=== PATIENT | female | born 1995 | race Caucasian/White ===

== ENCOUNTER 2025-03-26 19:00 | Emergency (ER) | payer OTHER, SELFPAY ==
--- OUTSIDE RECORDS SUMMARY | 2024-07-01 09:32 | XMS_ITS | Continuity of Care Document ---
Author Organization [facility] Address [address] [place] [address] Phone Care Team Providers Care Billet Straightener Name Role Phone Sarah Laughlin APRN Unavailable Unavaila ble Allergies, Adverse Reactions, Alerts Substance Reaction Status Criticality No Known Allergies Active No Inform ation Medications Medication Instructions Dosage Effective Dates (start - stop) Status Comments sumatriptan 25 mg tablet take 1 tablet by oral route after onset of migraine; may repeat after 2 hours if headache returns,not to exceed 200mg in 24hrs 25 MG - Active ondansetron HCl 4 mg tablet take 1 tablet by oral route 3 times every day prn n/v - Active gabapentin 600 mg tablet take 1 tablet by oral route 3 times every day 600 MG - Active mirtazapine 7.5 mg tablet take 1 tablet by oral route every day at bedtime 7.5 MG - Active sertraline 50 mg tablet take 1.5 tablet by oral route every bedtime 75 MG - Active Procedures Procedure Date Ketorolac tromethamine inj 15mg 024 OFFICE/OUTPATIENT VISIT, [facility] Advance Directives Directive Yes / No Effective Date File Name No Information Encounters Encounter Description Practice Location Reason(s) For Visit Diagnoses Date Provider Providers Copied on Encounter [facility], [address] [place] [address], [id number] , [place] tel:[phone] [facility] No Information 4 Emerson Smith. [address] [place] [address], [id number], [place]. tel: [phone] OFFICE/OUTPA TIENT VISIT, [facility], [address], [place], [id number] , [place] tel: [phone] [facility] Head pain, dizzy (chief complaint) Body mass index [BMI] 29.0-29.9, adultAcute nonintractable headache, unspecified headache typeNauseaDizzinessV apes nicotine containing substance Emerson Smith. [address] [place] [address], [id number], [place]. tel: [phone] Family History Family Member Type Diagnosis Age At Onset Sister Problem Developmental delay Sister Problem Seizure disorder Sister Problem ADD/ADHD Brother Problem Asthma Mother Problem Depression Mother Problem Allergies Mother Problem Obesity Payers Payer name Insurance type Covered libertarian ID Authoriza tion(s) [place] [id number] Medicaid Wrap - [facility] MC [id number] Social History Type Description Quantity Date Captured Comments Alcohol Use Details Unknown Caffeine Use Details Unknown Tobacco Use Status No Information Smoking Status No Information Sex Female Sexual Orientation Straight or heterosexual Feb Gender Identity Female Chief Complaint And Reason For Visit No Information Reason For Referral Reason For Referral No Information Plan Of Treatment Date Type Action Status Goal Influenza vaccine. Due on Oc due Goal Unhealthy drug u se screening. Due on due Goal HPV. Due on due Goal Tdap. Due on due Goal PRAPARE ASSESSMENT. Due on O due Goal Depression scree franny. Due on due Goal Hep A. Due on du e Goal Hepatitis C scre ening. Due on due Goal RLP. Due on due Goal Tdap Vaccine. Due on 2023 due Goal Depression scree franny. Due on due Goal Tdap. Due on due Goal HPV. Due on due Goal Tdap Vaccine. Due on 2023 due Goal PRAPARE ASSESSMENT. Due on J due Goal Hep A. Due on du e Goal Influenza vaccine. Due on Ju n due Goal RLP. Due on due Goal Hepatitis C scre ening. Due on due Goal Unhealthy drug u se screening. Due on due Goal Dietary manageme nt education, guidance, and counseling completed Future Order: Lab Order HCV Anti body W/ Reflex To Quantitative Real Time Pcr ([id number]), Sent on: Sent History Of Present Illness Encounter Date Complaint History Of Prese nt Illness Head pain, dizzy Presents with c /o head pain/pressure, dizziness, some nausea, and light sensitivity. Reports dizziness for a few months off and on, now dizziness and head pressure has been constant for 2-3 days. Had seen a provider for dizziness and is waiting for referral for ENT, tried antivert without relief. Pt states she has a PCP but could not get into see him today but if she likes the provider she may want to establish care. On Gabapentin for fibromyalgia per pain management at [facility]. [facility] in [place] for mental health. [facility]. Tata Bridges RN I have reviewed all above information and agree. Went to ER for migraine a few days ago and had CT head, headache cocktail and IV meds and fluids. Has taken tylenol, motrin, migraine medicine and antivert. No vomiting but is nauseated. Has had a migraine before. Denies illness. No fever, cough or cold. Reports taking prescribed medications as directed. Denies needs/concerns today. LKastor FENCE ERECTOR Functional Status Date Functional Assessmen t No Information Instructions Date Instruction Additional Infor mation Giving encouragement to exercise Related to Body mass index [BMI] 29.0-29.9, adult Dietary management e ducation, guidance, and counseling Related to Body mass index [BMI] 29.0-29.9, adult Assessments Type Assessment Date No Information Patient Care Teams Name Effective Dates (start - stop) Status Members No Information
[2025-03-26 19:04] VITALS: BP 134/84; PULSE 91; TEMP 36.6; O2SAT 99; BMI 28.3
--- OUTSIDE RECORDS SUMMARY | 2025-03-26 19:09 | XMS_ITS | Clinical Summary ---
Author Organization [facility] Address [address] [place] [address] Care Team Providers Care Computer Programmer Analyst Name Role Phone Wes Vargas DO Primary Care Provider [phone] Dexter Morataya MD Unavailable [phone] Wes Vargas DO Unavailable [phone] Allergies No known active allergies Medications folic acid 1 mg tablet Take 1 tablet by mouth once daily. 30 tablet 2 7 Active Additional Information Patient taking differently: 800 mcgORAL DAILY, Reason: Changing Therapy/Dosage Form, Reported on 11/24/2019 Norethindrone Acet-Ethinyl Est (LOESTRIN 1.530, 21,) 1.5-30 mg-mcg tab Take by mouth once daily. Active gabapentin (NEURONTIN) 600 mg tablet Take 600 mg by mouth three times daily. Active amitriptyline (ELAVIL) 25 mg tablet Take 25 mg by mouth daily at bedtime. Active venlafaxine (EFFEXOR) 37.5 mg tablet Take 37.5 mg by mouth once daily. Active naproxen (NAPROSYN) 500 mg tablet Take 500 mg by mouth twice daily with meals. Active Vitamin E, dl, acetate, (VITAMIN E) 400 unit capsule Take 400 Units by mouth once daily. Active Magnesium Oxide 500 mg tab Take 500 mg by mouth once daily. Active SUMAtriptan (IMITREX) 25 mg tabletIndicati ons:Daily headache Take 1 tablet (25 mg) by mouth as needed for migraine headache (see administration instructions). May repeat dose after 2 hours if needed. Maximum daily dose is 200 mg per day. 20 tablet 4 Active Coenzyme Q10 200 mg capIndications :Daily headache Take 1 capsule by mouth two times a day. 60 capsule 1 4 Active riboflavin, vitamin B2, 400 mg tabIndications :Daily headache Take 1 tablet by mouth once daily. 30 tablet 1 4 Active Active Problems Problem Noted Date Diagnosed Date Chronic pain syndrome 07/24/2017 RSD (reflex sympathetic dystrophy) 03/26/2017 Overview (03/26/2017): Pain management consult diagnosis: likely RSD as contributor to symptoms (pain, weakness) -started Tizanidine to 2 mg every eight, add Trazodone 50 mg at night, home dose of Lyrica 100 mg TID and add Cymbalta 20 mg daily -Symptoms improved significantly overnight -Can walk again (with walker) and pain in bilateral lower extremities and weakness nearly back to baseline. Low back pain 03/25/2017 Overview (03/26/2017): Not able to walk MRI notable for L4-L5 disc herniation, no spinal canal stenosis, no cord injuries The pattern of LE pain, physical exam and MRI are not consistent with spinal lesion or nerve impingement. Neurologic vs. Psychosomatic; apparently this was brought up in the OSH but was not taken well by the family. Plan: - Pain management - note and recs in - Physical therapy - planning on outpatient therapy - Labs ordered per Neuro recs SUMMARY 03/25/2017 Overview (03/25/2017): Ms. Glynn is a 22 year old female with PMH of chronic back pain 2/2 L4-L5 herniated disc (3 years), presumed history of depression who is admitted with abrupt exacerbation of pain in her LE's and back. Imaging is not consistent with cord compression. She has been evaluated by Neurology, Neurosurgery and Neuro Pain management. The history and examination is most consistent with reflex sympathetic dystrophy. DDD (degenerative disc disease), lumbar 10/29/19 15 Depression Resolved Problems Problem Noted Date Diagnosed Date Resolved Date Transitional vertebra 10/29/20142016 Collar bone fracture 017 Family History Medical History Relation Comments Stroke Maternal Aunt 1 heart attack Maternal Aunt 2 Stroke Maternal Grandfather heart attack Maternal Grandfather Arthritis Maternal Grandmother Cancer Maternal Grandmother Diabetes Maternal Grandmother HTN Maternal Uncle 1 heart attack Maternal Uncle 2 Diabetes Maternal Uncle 3 Diabetes Mother HTN Mother Relation Status Comments Father Alive Maternal Aunt 1 Maternal Aunt 2 Maternal Grandfather Maternal Grandmother Maternal Uncle 1 Maternal Uncle 2 Maternal Uncle 3 Mother Alive Social History Tobacco Use Types Packs/Day Years Used Date Smoking Tobacco: Never Smokeless Tobacco: Never Tobacco Cessation:Counseling Given: No Alcohol Use Standard Drinks/Week Comments No 0 (1 standard drink = 0.6 oz pur e alcohol) rare Area Deprivation Index Answer Date Balwinder rded National Score (1-100), lower number is lower ri sk 63 06/24/2024 State Score (1-10), lower number is lower risk 4 06/24/2024 Data from: https://www.neighborhoodatlas.medicine.[facility].edu/. Last address used for calculation [address] 06/24/2024 Comments No Sex and Gender Information Value Date Recorded Sex Assigned at Not on file Legal Sex Female 9:43 AM EST Gender Identity Not on file Sexual Orientation Not on file Occupation Industry Job Start Date Job End Date student @ [employer] Not on file Not on file Not on file unknown Not on file Not on file Not on file Last Filed Vital Signs Vital Sign Reading Time Taken Comments Blood Pressure 126/85 06/24/2024 10:03 AM EDT Pulse 76 06/24/2024 10:03 AM EDT Temperature 36.8 C (98.3 F) 03/26/2017 4:00 PM EDT Respiratory Rate 20 11/24/2019 2:42 PM EDT Oxygen Saturation 98% 06/24/2024 10:03 AM EDT Inhaled Oxygen Concentration - - Weight 95.1 kg (209 lb 9.6 oz) 11/24/2019 2:42 P M EDT Height 165.1 cm (5' 5 ) 11/24/2019 2:42 PM EDT Body Mass Index 34.88 11/24/2019 2:42 PM EDT Plan of Treatment Health Maintenance Due Date Last Done Comments Anxiety Screening 02/11/2012 HIV Screening 02/11/2012 Hepatitis C Screening 02/11/2012 DTaP,Tdap,Td Vaccine (1 - Tdap) 2013 Hepatitis B Vaccine (1 of 3 - 19+ 3-dose series) 02/10 Cervical Cancer Screening 2015 Covid-19 Vaccine (2023- season) 2024 Influenza Vaccine (#1) 2025 07/28/[address] [place] [address] [facility] MEDICAID Care Teams Computer Programmer Analyst Relationship Specialty Start Date End Date Wes Vargas DO PCP - General Family Medicine 10/22/14 Dexter Morataya MD Referring Pain Management 11/18/19 Wes Vargas DO [address] [place] [address] Referring Family Medicine 03/03/21
--- OUTSIDE RECORDS SUMMARY | 2025-03-26 19:09 | XMS_ITS | Clinical Summary ---
Author Organization [facility] Address [address] [place] [address] Care Team Providers Care Turf Manager Name Role Phone SamWes Primary Care Provider Allergies No known active allergies Medications Magnesium Oxide 500 MG tablet Take 1 tablet by mouth daily. Active Vit-Fe Fumarate-FA (WesTab Plus) 27-1 MG tablet Take 1 tablet by mouth daily. 2 Active FLUoxetine 20 MG capsule Take 1 capsule by mouth daily. Active ProFe 391.3 (180 Fe) MG capsule Take 1 capsule by mouth daily. 3 Active sulindac 200 MG tabletIndications:V itamin D deficiency,Calcanea l spur of foot, left,Ganglion cyst of dorsum of right wrist,Ganglion cyst of wrist, left,HNP (herniated nucleus pulposus), lumbar,Lumbar degenerative disc disease,Primary osteoarthritis of left wrist,Abnormal x-ray,History of fibromyalgia,HLA B27 (HLA B27 positive),bed bug exterminator current use of non-steroidal anti-inflammatories (NSAID) 1 po bid PRN 60 tablet 11 3 Active cholecalciferol 25 MCG (1000 UNIT) tabletIndications:V itamin D deficiency,Calcanea l spur of foot, left,Ganglion cyst of dorsum of right wrist,Ganglion cyst of wrist, left,HNP (herniated nucleus pulposus), lumbar,Lumbar degenerative disc disease,Primary osteoarthritis of left wrist,Abnormal x-ray,History of fibromyalgia,HLA B27 (HLA B27 positive),longterm current use of non-steroidal anti-inflammatories (NSAID) 1 po q day 30 tablet 11 3 Active Active Problems Problem Noted Date Diagnosed Date Patient non adherence 12/20/2022 Noncompliance 12/20/2022 Ganglion cyst of wrist, left 12/20/2022 HNP (herniated nucleus pulposus), lumbar 023 Ganglion cyst of dorsum of right wrist 3 Vitamin D deficiency 07/27/2021 HLA B27 (HLA B27 positive) 07/27/2021 Lumbar degenerative disc disease 07/27/2021 Spasm of thoracic back muscle 07/27/2021 Calcaneal spur of foot, left 07/27/2021 Abnormal x-ray 07/27/2021 Primary osteoarthritis of left wrist 07/27/2021 Wrist pain, left 07/27/2021 Fatigue 06/22/2021 Disorder of bone and cartilage 06/22/2021 History of fibromyalgia 06/22/2021 Abnormal reflexes 06/22/2021 Dorsalgia 06/22/2021 Bilateral wrist pain 06/22/2021 Bilateral hand pain 06/22/2021 Bilateral chronic knee pain 06/22/2021 Pes anserinus bursitis of both knees 06/22/2021 Bilateral foot pain 06/22/2021 Bilateral plantar fasciitis 06/22/2021 longterm current use of non -steroidal anti-inflammatories (NSAID) 06/22/2021 Marijuana use 06/22/2021 Social History Tobacco Use Types Packs/Day Years Used Date Smoking Tobacco: Every Day Smokeless Tobacco: Never Tobacco Cessation:Ready to Q uit: Not Asked; Counseling Given: Not Answered Comments Unknown Sex and Gender Information Value Date Recorded Sex Assigned at Not on file Legal Sex Female 12:25 PM EDT Gender Identity Not on file Sexual Orientation Not on file Last Filed Vital Signs Vital Sign Reading Time Taken Comments Blood Pressure 110/64 12/20/2022 4:03 PM EDT Pulse 97 12/20/2022 4:03 PM EDT Temperature - - Respiratory Rate 18 12/20/2022 4:03 PM EDT Oxygen Saturation 98% 12/20/2022 4:03 PM EDT Inhaled Oxygen Concentration - - Weight 65.2 kg (143 lb 12.8 oz) 12/20/2022 4:03 PM EDT Height 165.1 cm (5' 5 ) 12/20/2022 4:03 PM EDT Body Mass Index 23.93 12/20/2022 4:03 PM EDT Plan of Treatment Health Maintenance Due Date Last Done Comments HEPATITIS C VIRUS SCREENING 1994 TETANUS 1994 HIV SCREENING DISCUSSION 2009 HEP B VACCINE (1 of 3 - 19+ 3-dose series) 2013 PNEUMOCOCCAL VACCINE SERIES (1 of 2 - PCV) 2013 TDAP (ADULT) 2013 CERVICAL CANCER SCREENING DISCUSSION 2015 COVID-19 VACCINE (1 - 2023-2 5 season) 2024 INFLUENZA VACCINE (Season Ended) 2025 07/28/20 09 HPV VACCINE Aged Out No longer eligi ble based on patient's age to complete this topic Insurance [id number] Care Teams Turf Manager Relationship Specialty Start Date End Date Wes Vargas DO PCP - General Family Medicine 06/22/21
--- OUTSIDE RECORDS SUMMARY | 2025-03-26 19:09 | XMS_ITS | Clinical Summary ---
Author Organization [facility] Address [address] [place] [address] Care Team Providers Care Pediatric Nephrologist Name Role Phone Wes Vargas MD Primary Care Provider [phone] Allergies No known active allergies Medications amitriptyline (Elavil) 50 MG tablet Take 1 tablet by mouth at bedtime 4 Active gabapentin (Neurontin) 600 MG tablet 2 tablets 3 times daily 4 Active magnesium gluconate 250 MG tablet Take 1 tablet by mouth 2 times daliy Active Calcium Carb-Cholecalcif juliane (CALCIUM 500 + D PO) Take by mouth Acti ve alpha tocopherol (Vitamin E) 100 units capsule Take 100 Units by mouth Daily Active Multiple Vitamins-Mineral s (WOMENS ONE DAILY PO) Take by mouth Active SUMAtriptan (Imitrex) 25 MG tablet Take 25 mg by mouth 1 (one) time if needed for migraine May repeat dose once in 2 hours if no relief. Do not exceed 2 doses in 24 hours. Active riboflavin (vitamin B2) 100 mg tablet tablet Take 100 mg by mouth Daily Active Coenzyme Q10 100 MG tablet Take 100 mg by mouth Daily Active tiZANidine (Zanaflex) 4 MG tabletIndication s:Intractable migraine without aura and without status migrainosus Take 1 tablet (4 mg) by mouth at bedtime 1/2-1 po q hs 30 tablet 2 4 Active Immunizations Immunization Administration Dates Next Due MMR 11/26/2022 Novel [id number], preservative-free 07/28 Family History Medical History Relation Name Comments Diabetes type II Mother Colon cancer Other 1 Congenital heart disease Other 1 Alzheimer's disease Other 2 Asthma Other 2 Dementia Other 2 Diabetes Other 2 Hypertension Other 2 Seizures Other 2 Sleep apnea Other 2 Stroke Other 2 Relation Name Status Comments Mother Other 1 Grandparent Other 2 Social History Tobacco Use Types Packs/Day Years Used Date Smoking Tobacco: Every Day Cigarettes Smokeless Tobacco: Never Tobacco Cessation:Ready to Q uit: Not Asked; Counseling Given: Not Answered Comments Unknown Sex and Gender Information Value Date Recorded Sex Assigned at Not on file Legal Sex Female 8:32 PM EDT Gender Identity Not on file Sexual Orientation Not on file Last Filed Vital Signs Vital Sign Reading Time Taken Comments Blood Pressure 108/62 07/01/2024 1:52 PM EDT Pulse 86 07/01/2024 1:52 PM EDT Temperature - - Respiratory Rate - - Oxygen Saturation 98% 07/01/2024 1:52 PM EDT Inhaled Oxygen Concentration - - Weight 86.5 kg (190 lb 12.8 oz) 07/01/2024 1:52 PM EDT Height 165.1 cm (5' 5 ) 07/01/2024 1:52 PM EDT Body Mass Index 31.75 07/01/2024 1:52 PM EDT Plan of Treatment Not on file Insurance [employer] Care Teams Pediatric Nephrologist Relationship Specialty Start Date End Date Wes Vargas MD [address] [facility] [place] [address] PCP - General Family Medicine 06/16/24
--- NOTE | 2025-03-26 19:17 | ED.EXTPRO1 ---
HPI - Extremity Problem General Chief complaint: Extremity Problem, Nontraumatic Stated complaint: POSSIBLE SPIDER BITE/INFECTED Time Seen by Provider: 03/26/25 19:06 Source: patient Mode of arrival: walk-in Limitations: no limitations History of Present Illness HPI Narrative: Patient is an otherwise healthy 30-year-old female presents to the emergency department for right lower extremity bug bite. Patient states that it began 2 days ago. She thought she was bit by a spider. She applied Neosporin after she washed it with soap and water and then put an Nick wrap on it. She states after she got a work she took the Nick wrap off and noticed that there was pus present. Patient is also noticed that the area has become erythematous, painful, and warm to the touch. Pain does not radiate or move anywhere. She rates it at a 4 out of 10. Touching it makes it worse. Nothing makes it better. She has not taken any pain medications prior to arrival. Patient states that she has no known history of MRSA. She does not live in a tick endemic area. Patient states that she has not been hiking or in the [place] or anywhere where there would have been ticks. Patient does not have a rash anywhere else. No fever or chills. No sick contacts or recent travel. Related Data Home Medications ?Medication ?Instructions ?Recorded ?Confirmed amitriptyline 25 mg tablet mg 03/26/25 cholecalciferol (vitamin D3) 25 1,000 unit PO DAILY 03/26/25 03/26/25 mcg (1,000 unit) tablet (Vitamin D3) folic acid 400 mcg tablet 400 mcg PO DAILY 03/26/25 03/26/25 gabapentin 600 mg tablet mg 03/26/25 magnesium 250 mg tablet 250 mg PO DAILY 03/26/25 03/26/25 Previous Rx's ?Medication ?Instructions ?Recorded clindamycin HCl 300 mg capsule 300 mg PO Q6H 7 days #28 caps 03/26/25 (Cleocin HCl) Allergies Allergy/AdvReac Type Severity Reaction Status Date / Time No Known Drug Allergies Allergy Verified 03/26/25 19:10 Review of Systems ROS Status of ROS 10 or more systems reviewed and unremarkable except as noted in history and below PFSH PFSH Social History Little interest or pleasure in doing things: not at all Feeling down, depressed, or hopeless: not at all Exam Narrative Exam Narrative: Prior to examining the patient, I have washed with hospital approved and provided Antiseptic Hand Family Practice Nurse Practitioner and have also applied gloves.? Prior to touching the patient, I asked for consent to examine the patient.? General: Alert and oriented, well nourished, mild distress. Eye: PERRL, EOMI, normal conjunctiva. 4 mm and reactive. glasses HENT: Normocephalic, normal hearing, moist oral mucosa, no scleral icterus Musculoskeletal: Normal range of motion and strength, no tenderness or swelling. Skin: Skin is warm, dry and pink, no rashes. The patient has 2 areas on her distal right ankle. They measure 3 cm and 2 cm in diameter. They are deep and red. Warm to the touch. Well-demarcated border. Tender. They appear almost blistered on a indurated surface. Neurologic: Awake, alert, and oriented X3, CN II-XII intact. Psychiatric: Cooperative, appropriate mood and affect.? Following the conclusion of the examination, I have washed my hands thoroughly after removing examination gloves. Constitutional Vital Signs, click to edit/add: Last Vital Signs Temp 97.9 F 03/26/25 19:04 Pulse 91 H 03/26/25 19:04 Resp 16 03/26/25 19:04 BP 134/84 03/26/25 19:04 Pulse Ox 99 03/26/25 19:04 O2 Del Method Room Air 03/26/25 19:04 Course Course Hospital Course: Patient appears nontoxic and in no acute distress. No evidence of sepsis. Patient at this time I believe can take antibiotics orally for the cellulitis. I informed her that alcohol, Betadine, and peroxide are to strong for the wound and she just needs to wash it with soap and water and she can apply some topical antibiotic ointment if she wants. The mainstay of therapy will be antibiotics. If her symptoms worsen or change in quality or characteristics she needs to return to the ER soon as possible for further evaluation and treatment. Vital Signs Vital signs: Vital Signs Temperature 97.9 F 03/26/25 19:04 Pulse Rate 91 H 03/26/25 19:04 Respiratory Rate 16 03/26/25 19:04 Blood Pressure 134/84 03/26/25 19:04 Pulse Oximetry 99 03/26/25 19:04 Oxygen Delivery Method Room Air 03/26/25 19:04 Temperature 97.9 F 03/26/25 19:04 Pulse Rate 91 H 03/26/25 19:04 Respiratory Rate 16 03/26/25 19:04 Blood Pressure 134/84 03/26/25 19:04 Pulse Oximetry 99 03/26/25 19:04 Oxygen Delivery Method Room Air 03/26/25 19:04 MDM - Extremity (Nontraumatic) MDM Narrative Medical decision making narrative: Patient is going to take outpatient antibiotics and monitor herself. Differential Diagnosis Differential diagnosis: Likely herpes zoster, cellulitis, superficial thrombophlebitis, deep venous thrombosis of upper extremity and other (Abscess) Medical Records Attestation: I reviewed the patient's medical records. Discharge Plan Discharge Chief Complaint: Extremity Problem, Nontraumatic Clinical Impression: Cellulitis of right ankle Patient Disposition: Home, Self-Care Time of Disposition Decision: 19:22 Condition: Good Mode of Transportation: Private Vehicle Prescriptions / Home Meds: New clindamycin HCl [Cleocin HCl] 300 mg capsule 300 mg PO Q6H 7 Days Qty: 28 0RF No Action gabapentin 600 mg tablet amitriptyline 25 mg tablet magnesium 250 mg tablet 250 mg PO DAILY folic acid 400 mcg tablet 400 mcg PO DAILY cholecalciferol (vitamin D3) [Vitamin D3] 25 mcg (1,000 unit) tablet 1,000 unit PO DAILY Print Language: Maltese Instructions: Cellulitis (ED) Additional Instructions: Thank you for trusting me with your care. Please follow-up with your outpatient provider. If you develop with fever or if your symptoms worsen or change please return to the ER immediately. Referrals: GLEN ANDERSON [Primary Care Provider, Family Practice] - 1 week
== END 2025-03-26 19:44 | disposition home or self-care (01) ==
PROVIDERS: Emergency Provider Emergency Medicine; PCP Family Medicine
DX: L03.115 Cellulitis of right lower limb (principal); S80.861A Insect bite (nonvenomous), right lower leg, initial encounter
CPT/HCPCS: 99283